=== PATIENT | male | born 1970 | race Caucasian/White ===

== ENCOUNTER 2018-11-28 04:16 | Emergency (ER) | payer OTHER ==
[2018-11-28 04:45] LABS: ADD MAN DIFF? NO
[2018-11-28] MEDS: LORAZEPAM 1 MG TAB PO (04:45)
[2018-11-28 04:47] LABS: BASOPHILS % 0.3 % (0.0-2.0); EOSINOPHILS # 0.1 10^3/ul (0.0-0.5); EOSINOPHILS % 1.1 % (0.0-7.0); HEMATOCRIT 48.6 % (42.0-52.0); HEMOGLOBIN 15.9 g/dl (14.0-18.0); LYMPHOCYTES # 2.9 10^3/ul (0.8-2.9); MEAN CORPUSCULAR HEMOGLOBIN 27.4 pg (29.0-33.0); MEAN CORPUSCULAR HGB CONC 32.7 g/dl (32.0-37.0); MEAN CORPUSCULAR VOLUME 83.6 fl (82.0-101.0); MEAN PLATELET VOLUME 10.3 fl (7.4-10.4); MONOCYTE # 0.5 10^3/ul (0.3-0.9); NEUTROPHIL # 5.4 10^3/ul (1.6-7.5); NEUTROPHILS % 60.2 % (39.0-77.0); PLATELET COUNT 284 10^3/UL (140-415); RED BLOOD COUNT 5.81 10^6/ul (4.70-6.10); RED CELL DISTRIBUTION WIDTH 14.6 % (11.5-14.5)
[2018-11-28 05:11] LABS: ALANINE AMINOTRANSFERASE 15 IU/L (13-69); ALBUMIN 4.3 g/dl (3.3-4.9); ALKALINE PHOSPHATASE 143 IU/L (42-121); ANION GAP 10 (5-13); ASPARTATE AMINO TRANSFERASE 24 IU/L (15-46); BLOOD UREA NITROGEN 13 mg/dl (7-20); CALCIUM 8.7 mg/dl (8.4-10.2); CARBON DIOXIDE 31 mmol/L (21-31); CHLORIDE 109 mmol/L (97-110); CREATININE 0.83 mg/dl (0.61-1.24); Estimated GFR > 60 mL/min (>60); GLUCOSE 111 mg/dl (70-220); POTASSIUM 3.8 mmol/L (3.5-5.1); SODIUM 150 mmol/L (135-144); TOTAL PROTEIN 8.6 g/dl (6.1-8.1)
[2018-11-28] MEDS: SOD CHLORIDE 0.9% 1,000 ML IV (05:39)
== END 2018-11-28 08:03 | disposition home or self-care (01) ==
LOC: E/R 08:03
DX: F10.920 Alcohol use, unspecified with intoxication, uncomplicated (principal); R40.2142 Coma scale, eyes open, spontaneous, at arrival to emergency department; R40.2252 Coma scale, best verbal response, oriented, at arrival to emergency department; R40.2362 Coma scale, best motor response, obeys commands, at arrival to emergency department
CPT/HCPCS: 80053; 80307; 85025; 99284-25

== ENCOUNTER 2018-11-28 09:11 | Inpatient (IN) | payer OTHER ==
[2018-11-28 10:11] LABS: ADD MAN DIFF? NO
[2018-11-28 10:19] LABS: WHITE BLOOD COUNT 7.9 10^3/ul (4.8-10.8)
[2018-11-28 10:19] LABS: BASOPHILS % 0.3 % (0.0-2.0); EOSINOPHILS % 0.5 % (0.0-7.0); HEMATOCRIT 44.6 % (42.0-52.0); HEMOGLOBIN 14.8 g/dl (14.0-18.0); LYMPHOCYTES # 2.3 10^3/ul (0.8-2.9); MEAN CORPUSCULAR HEMOGLOBIN 27.3 pg (29.0-33.0); MEAN CORPUSCULAR HGB CONC 33.2 g/dl (32.0-37.0); MEAN CORPUSCULAR VOLUME 82.1 fl (82.0-101.0); MEAN PLATELET VOLUME 10.3 fl (7.4-10.4); MONOCYTE # 0.6 10^3/ul (0.3-0.9); MONOCYTES % 7.9 % (0.0-11.0); NEUTROPHIL # 4.8 10^3/ul (1.6-7.5); NEUTROPHILS % 61.7 % (39.0-77.0); PLATELET COUNT 260 10^3/UL (140-415); RED BLOOD COUNT 5.43 10^6/ul (4.70-6.10); RED CELL DISTRIBUTION WIDTH 14.8 % (11.5-14.5)
[2018-11-28 10:34] LABS: ALANINE AMINOTRANSFERASE 20 IU/L (13-69); ALBUMIN/GLOBULIN RATIO 1.08; ALKALINE PHOSPHATASE 115 IU/L (42-121); ANION GAP 11 (5-13); ASPARTATE AMINO TRANSFERASE 21 IU/L (15-46); BLOOD UREA NITROGEN 12 mg/dl (7-20); CALCIUM 8.3 mg/dl (8.4-10.2); CARBON DIOXIDE 30 mmol/L (21-31); CHLORIDE 106 mmol/L (97-110); CREATININE 0.73 mg/dl (0.61-1.24); Estimated GFR > 60 mL/min (>60); GLUCOSE 120 mg/dl (70-220); POTASSIUM 3.2 mmol/L (3.5-5.1); SODIUM 147 mmol/L (135-144); TOTAL PROTEIN 7.7 g/dl (6.1-8.1)
[2018-11-28 10:35] LABS: ADD UMIC YES; UR ASCORBIC ACID NEGATIVE (NEGATIVE); UR BILIRUBIN (Dip) NEGATIVE (NEGATIVE); UR BLOOD (Dip) 1+ mg/dL (NEGATIVE); UR CLARITY SLIGHTLY CLOUDY (CLEAR); UR COLOR YELLOW (YELLOW); UR GLUCOSE (Dip) 2+ mg/dL (NEGATIVE); UR KETONES (Dip) NEGATIVE (NEGATIVE); UR LEUKOCYTE ESTERASE (Dip) 2+ Leu/ul (NEGATIVE); UR NITRITE (Dip) NEGATIVE (NEGATIVE); UR NONSQUAMOUS EPITHELIAL CELL 2 /HPF (NONE SEEN); UR RBC 10 /HPF (0-5); UR SPECIFIC GRAVITY (Dip) 1.016 (1.003-1.030); UR TOTAL PROTEIN (Dip) 2+ mg/dl (NEGATIVE); UR UROBILINOGEN (Dip) 1+ mg/dL (NEGATIVE); UR WBC > 182 /HPF (0-5)
[2018-11-28 10:47] LABS: ACETAMINOPHEN < 10.0 ug/ml (10.0-30.0); SALICYLATE < 1.0 mg/dl (5.0-30.0)
[2018-11-28] MEDS: TRIMETHOPRIM/SULFAMETHOX (DS) TAB PO (10:54)
[2018-11-28 11:07] LABS: AMPHETAMINE/METHAMPHETAMINE Negative (NEGATIVE); BARBITURATES Negative (NEGATIVE); BENZODIAZEPINES Negative (NEGATIVE); CANNABINOIDS Negative (NEGATIVE); COCAINE Negative (NEGATIVE); OPIATES Negative (NEGATIVE)
[2018-11-28] MEDS: ONDANSETRON 4 MG INJ IM (12:03)
[2018-11-28] MEDS: OLANZAPINE 10 MG VIAL IM (12:32)
[2018-11-28] MEDS: METOCLOPRAMIDE 10 MG INJ IV (18:32)
[2018-11-28] MEDS: SOD CHLORIDE 0.9% 1,000 ML IV (18:33)
[2018-11-28] MEDS: LORAZEPAM 2 MG INJ IV (18:34)
[2018-11-28] MEDS: PANTOPRAZOLE IV 80 MG in SOD CHLORIDE 0.9% 100 ML IVPB (18:53)
[2018-11-28] MEDS: PANTOPRAZOLE IV 80 MG in SOD CHLORIDE 0.9% 100 ML IV (18:54)
[2018-11-28] MEDS ORDERED: SOD CHLORIDE 0.9% 1,000 ML IV ×2 (19:48→20:09)
[2018-11-28] MEDS ORDERED: ONDANSETRON 4 MG INJ IV ×2 (20:00→20:30)
[2018-11-28] MEDS ORDERED: ACETAMINOPHEN 325 MG TAB PO ×2 (20:00→20:30)
[2018-11-28] MEDS ORDERED: METOCLOPRAMIDE 10 MG INJ IV (20:30)
[2018-11-28] MEDS ORDERED: LORAZEPAM 2 MG INJ IV (20:30)
[2018-11-28] MEDS ORDERED: NACL 0.9% 3 ML SYG IV (20:30)
[2018-11-28] MEDS: POTASSIUM CHLORIDE (SR) 20 MEQ TAB PO (21:44)
[2018-11-28] MEDS: LORAZEPAM 1 MG TAB PO (22:06)
[2018-11-28 22:24] LABS: INR 0.99; PROTIME 13.2 Sec (11.9-14.9)
[2018-11-28 22:25] LABS: PARTIAL THROMBOPLASTIN TIME 28.2 Sec (23.0-35.0)
[2018-11-28] MEDS: CEFTRIAXONE 2 GM/50 ML (PMX) 50 ML IVPB (22:56)
[2018-11-28 23:33] LABS: ADD MAN DIFF? NO
[2018-11-28 23:36] LABS: WHITE BLOOD COUNT 11.2 10^3/ul (4.8-10.8)
[2018-11-28 23:36] LABS: BASOPHILS % 0.3 % (0.0-2.0); EOSINOPHILS % 0.4 % (0.0-7.0); HEMATOCRIT 39.4 % (42.0-52.0); LYMPHOCYTES # 2.6 10^3/ul (0.8-2.9); LYMPHOCYTES % 23.3 % (15.0-51.0); MEAN CORPUSCULAR HEMOGLOBIN 27.1 pg (29.0-33.0); MEAN CORPUSCULAR VOLUME 82.3 fl (82.0-101.0); MEAN PLATELET VOLUME 10.6 fl (7.4-10.4); MONOCYTES % 8.5 % (0.0-11.0); NEUTROPHIL # 7.5 10^3/ul (1.6-7.5); NEUTROPHILS % 67.1 % (39.0-77.0); PLATELET COUNT 232 10^3/UL (140-415); RED BLOOD COUNT 4.79 10^6/ul (4.70-6.10); RED CELL DISTRIBUTION WIDTH 14.9 % (11.5-14.5)
[2018-11-29] MEDS: MULTIVITAMINS 10 ML, THIAMINE 100 MG, FOLIC ACID 1 MG in SOD CHLORIDE 0.9% 1,000 ML IVPB (00:27)
[2018-11-29] MEDS: POTASSIUM CHLORIDE 30 MEQ in SOD CHLORIDE 0.45% 1,000 ML IV ×2 (00:58→13:40)
[2018-11-29 06:13] LABS: ADD MAN DIFF? NO
[2018-11-29 06:17] LABS: WHITE BLOOD COUNT 8.3 10^3/ul (4.8-10.8)
[2018-11-29 06:17] LABS: BASOPHILS % 0.5 % (0.0-2.0); EOSINOPHILS # 0.1 10^3/ul (0.0-0.5); EOSINOPHILS % 1.2 % (0.0-7.0); HEMATOCRIT 35.1 % (42.0-52.0); HEMOGLOBIN 11.5 g/dl (14.0-18.0); LYMPHOCYTES # 2.4 10^3/ul (0.8-2.9); LYMPHOCYTES % 28.7 % (15.0-51.0); MEAN CORPUSCULAR HEMOGLOBIN 27.3 pg (29.0-33.0); MEAN CORPUSCULAR HGB CONC 32.8 g/dl (32.0-37.0); MEAN CORPUSCULAR VOLUME 83.2 fl (82.0-101.0); MEAN PLATELET VOLUME 10.6 fl (7.4-10.4); MONOCYTE # 0.9 10^3/ul (0.3-0.9); MONOCYTES % 10.3 % (0.0-11.0); NEUTROPHIL # 4.9 10^3/ul (1.6-7.5); NEUTROPHILS % 59.1 % (39.0-77.0); PLATELET COUNT 185 10^3/UL (140-415); RED BLOOD COUNT 4.22 10^6/ul (4.70-6.10); RED CELL DISTRIBUTION WIDTH 15.2 % (11.5-14.5)
[2018-11-29] MEDS: PANTOPRAZOLE IV 80 MG in SOD CHLORIDE 0.9% 100 ML IV ×2 (06:46→16:15)
[2018-11-29 07:01] LABS: ALANINE AMINOTRANSFERASE 16 IU/L (13-69); ALBUMIN 2.9 g/dl (3.3-4.9); ALBUMIN/GLOBULIN RATIO 1.07; ALKALINE PHOSPHATASE 89 IU/L (42-121); ANION GAP 6 (5-13); ASPARTATE AMINO TRANSFERASE 16 IU/L (15-46); BILIRUBIN,INDIRECT 0.2 mg/dl (0-1.1); BILIRUBIN,TOTAL 0.2 mg/dl (0.2-1.3); BLOOD UREA NITROGEN 10 mg/dl (7-20); CALCIUM 7.8 mg/dl (8.4-10.2); CARBON DIOXIDE 26 mmol/L (21-31); CHLORIDE 107 mmol/L (97-110); CREATININE 0.75 mg/dl (0.61-1.24); Estimated GFR > 60 mL/min (>60); GLUCOSE 143 mg/dl (70-220); MAGNESIUM 1.7 mg/dl (1.7-2.5); POTASSIUM 3.6 mmol/L (3.5-5.1); SODIUM 139 mmol/L (135-144); TOTAL PROTEIN 5.6 g/dl (6.1-8.1)
[2018-11-29 08:26] LABS: HEMOGLOBIN A1C 5.2 % (0-5.9)
[2018-11-29] MEDS: MULTIVITAMINS THERAPEUTIC TAB PO (09:07)
[2018-11-29] MEDS: THIAMINE 200 MG INJ IM (09:07)
[2018-11-29] MEDS: FOLIC ACID 1 MG TAB PO (09:07)
[2018-11-29] MEDS: ATENOLOL 100 MG TAB PO (09:07)
[2018-11-29] MEDS: LORAZEPAM 1 MG TAB PO ×3 (09:16→17:48)
[2018-11-29 10:30] LABS: ADD MAN DIFF? NO
[2018-11-29 10:41] LABS: BASOPHILS % 0.5 % (0.0-2.0); EOSINOPHILS # 0.1 10^3/ul (0.0-0.5); EOSINOPHILS % 1.5 % (0.0-7.0); HEMATOCRIT 34.5 % (42.0-52.0); HEMOGLOBIN 11.3 g/dl (14.0-18.0); LYMPHOCYTES % 30.1 % (15.0-51.0); MEAN CORPUSCULAR HEMOGLOBIN 27.3 pg (29.0-33.0); MEAN CORPUSCULAR HGB CONC 32.8 g/dl (32.0-37.0); MEAN CORPUSCULAR VOLUME 83.3 fl (82.0-101.0); MEAN PLATELET VOLUME 10.2 fl (7.4-10.4); MONOCYTE # 0.5 10^3/ul (0.3-0.9); MONOCYTES % 8.1 % (0.0-11.0); NEUTROPHIL # 3.9 10^3/ul (1.6-7.5); NEUTROPHILS % 59.3 % (39.0-77.0); PLATELET COUNT 182 10^3/UL (140-415); RED BLOOD COUNT 4.14 10^6/ul (4.70-6.10); RED CELL DISTRIBUTION WIDTH 14.9 % (11.5-14.5)
[2018-11-29 10:41] LABS: WHITE BLOOD COUNT 6.6 10^3/ul (4.8-10.8)
[2018-11-29] MEDS: LEVOFLOXACIN 750MG/D5W (PMX) 150 ML IVPB (12:54)
[2018-11-29 17:11] LABS: ADD MAN DIFF? NO
[2018-11-29 17:13] LABS: WHITE BLOOD COUNT 9.7 10^3/ul (4.8-10.8)
[2018-11-29 17:13] LABS: BASOPHILS % 0.3 % (0.0-2.0); EOSINOPHILS # 0.1 10^3/ul (0.0-0.5); EOSINOPHILS % 1.2 % (0.0-7.0); HEMATOCRIT 35.4 % (42.0-52.0); HEMOGLOBIN 11.5 g/dl (14.0-18.0); LYMPHOCYTES # 2.5 10^3/ul (0.8-2.9); LYMPHOCYTES % 25.6 % (15.0-51.0); MEAN CORPUSCULAR HEMOGLOBIN 27.1 pg (29.0-33.0); MEAN CORPUSCULAR HGB CONC 32.5 g/dl (32.0-37.0); MEAN CORPUSCULAR VOLUME 83.3 fl (82.0-101.0); MEAN PLATELET VOLUME 10.2 fl (7.4-10.4); MONOCYTE # 0.7 10^3/ul (0.3-0.9); MONOCYTES % 6.9 % (0.0-11.0); NEUTROPHIL # 6.4 10^3/ul (1.6-7.5); NEUTROPHILS % 65.7 % (39.0-77.0); PLATELET COUNT 176 10^3/UL (140-415); RED BLOOD COUNT 4.25 10^6/ul (4.70-6.10); RED CELL DISTRIBUTION WIDTH 14.5 % (11.5-14.5)
[2018-11-29] MEDS: LORAZEPAM 4 MG/ML VIAL IV (21:39)
[2018-11-30] MEDS: SOD CHLORIDE 0.9% 1,000 ML IV ×2 (01:04→17:42)
[2018-11-30] MEDS: ZOLPIDEM 5 MG TAB PO ×2 (01:12→21:58)
[2018-11-30] MEDS: PANTOPRAZOLE IV 80 MG in SOD CHLORIDE 0.9% 100 ML IV ×3 (01:13→20:55)
[2018-11-30] MEDS: LEVOFLOXACIN 500 MG TAB PO (05:29)
[2018-11-30] MEDS: LORAZEPAM 1 MG TAB PO (06:52)
[2018-11-30] MEDS: MULTIVITAMINS THERAPEUTIC TAB PO (11:09)
[2018-11-30] MEDS: ATENOLOL 100 MG TAB PO (11:10)
[2018-11-30] MEDS: ALPRAZOLAM 0.5 MG TAB PO (11:10)
[2018-11-30] MEDS: FOLIC ACID 1 MG TAB PO (11:10)
[2018-11-30] MEDS: THIAMINE 200 MG INJ IM (11:11)
[2018-11-30] MEDS ORDERED: CHLORPROMAZINE 25 MG INJ IM (11:30)
[2018-11-30] MEDS ORDERED: OLANZAPINE 5 MG TAB PO (11:30)
[2018-11-30] MEDS: CHLORDIAZEPOXIDE 25 MG CAP PO ×2 (12:09→20:54)
[2018-11-30] MEDS: SUCRALFATE (100 MG/ML) 10ML CUP GTB ×3 (12:09→20:54)
[2018-11-30 13:01] LABS: ADD UMIC NO; UR ASCORBIC ACID NEGATIVE (NEGATIVE); UR BILIRUBIN (Dip) NEGATIVE (NEGATIVE); UR BLOOD (Dip) NEGATIVE (NEGATIVE); UR CLARITY CLEAR (CLEAR); UR COLOR STRAW (YELLOW); UR GLUCOSE (Dip) NEGATIVE (NEGATIVE); UR KETONES (Dip) NEGATIVE (NEGATIVE); UR LEUKOCYTE ESTERASE (Dip) NEGATIVE Leu/ul (NEGATIVE); UR NITRITE (Dip) NEGATIVE (NEGATIVE); UR SPECIFIC GRAVITY (Dip) 1.008 (1.003-1.030); UR TOTAL PROTEIN (Dip) NEGATIVE (NEGATIVE); UR UROBILINOGEN (Dip) NEGATIVE (NEGATIVE)
[2018-11-30 16:28] LABS: ETHANOL < 10.0 mg/dl (0-0)
[2018-11-30] MEDS: BISACODYL (EC) 5 MG TAB PO (21:59)
[2018-12-01] MEDS: LEVOFLOXACIN 500 MG TAB PO (05:29)
[2018-12-01] MEDS: PANTOPRAZOLE IV 80 MG in SOD CHLORIDE 0.9% 100 ML IV (05:32)
[2018-12-01] MEDS: CHLORDIAZEPOXIDE 25 MG CAP PO ×3 (09:00→20:04)
[2018-12-01] MEDS: FOLIC ACID 1 MG TAB PO (09:00)
[2018-12-01] MEDS: MULTIVITAMINS THERAPEUTIC TAB PO (09:00)
[2018-12-01] MEDS: ALPRAZOLAM 0.5 MG TAB PO (09:00)
[2018-12-01] MEDS: ATENOLOL 100 MG TAB PO (09:01)
[2018-12-01] MEDS: SUCRALFATE (100 MG/ML) 10ML CUP GTB ×4 (09:01→20:04)
[2018-12-01] MEDS: THIAMINE 200 MG INJ IM (12:37)
[2018-12-01] MEDS: PANTOPRAZOLE 40 MG INJ IV (17:25)
[2018-12-01] MEDS: QUETIAPINE 25 MG TAB PO (20:04)
[2018-12-02] MEDS: LEVOFLOXACIN 500 MG TAB PO (06:14)
[2018-12-02] MEDS: PANTOPRAZOLE 40 MG INJ IV ×2 (06:14→17:20)
[2018-12-02 06:25] LABS: ADD MAN DIFF? NO
[2018-12-02 06:33] LABS: BASOPHILS % 0.3 % (0.0-2.0); EOSINOPHILS # 0.2 10^3/ul (0.0-0.5); EOSINOPHILS % 2.6 % (0.0-7.0); HEMATOCRIT 35.2 % (42.0-52.0); HEMOGLOBIN 11.8 g/dl (14.0-18.0); LYMPHOCYTES # 1.9 10^3/ul (0.8-2.9); LYMPHOCYTES % 29.9 % (15.0-51.0); MEAN CORPUSCULAR HEMOGLOBIN 27.6 pg (29.0-33.0); MEAN CORPUSCULAR HGB CONC 33.5 g/dl (32.0-37.0); MEAN CORPUSCULAR VOLUME 82.2 fl (82.0-101.0); MEAN PLATELET VOLUME 10.7 fl (7.4-10.4); MONOCYTE # 0.5 10^3/ul (0.3-0.9); MONOCYTES % 7.8 % (0.0-11.0); NEUTROPHIL # 3.8 10^3/ul (1.6-7.5); NEUTROPHILS % 59.2 % (39.0-77.0); PLATELET COUNT 217 10^3/UL (140-415); RED BLOOD COUNT 4.28 10^6/ul (4.70-6.10); RED CELL DISTRIBUTION WIDTH 14.5 % (11.5-14.5)
[2018-12-02 06:33] LABS: WHITE BLOOD COUNT 6.5 10^3/ul (4.8-10.8)
[2018-12-02 06:55] LABS: ANION GAP 4 (5-13); BLOOD UREA NITROGEN 12 mg/dl (7-20); CALCIUM 8.8 mg/dl (8.4-10.2); CARBON DIOXIDE 28 mmol/L (21-31); CHLORIDE 108 mmol/L (97-110); CREATININE 0.77 mg/dl (0.61-1.24); Estimated GFR > 60 mL/min (>60); GLUCOSE 107 mg/dl (70-220); POTASSIUM 3.7 mmol/L (3.5-5.1); SODIUM 140 mmol/L (135-144)
[2018-12-02] MEDS: FOLIC ACID 1 MG TAB PO (08:51)
[2018-12-02] MEDS: CHLORDIAZEPOXIDE 25 MG CAP PO ×3 (08:51→20:17)
[2018-12-02] MEDS: MULTIVITAMINS THERAPEUTIC TAB PO (08:51)
[2018-12-02] MEDS: ATENOLOL 100 MG TAB PO (08:52)
[2018-12-02] MEDS: SUCRALFATE (100 MG/ML) 10ML CUP GTB ×4 (08:52→20:18)
[2018-12-02] MEDS: ALPRAZOLAM 1 MG TAB PO (09:31)
[2018-12-02] MEDS: QUETIAPINE 100 MG TAB PO (20:18)
[2018-12-03] MEDS: LEVOFLOXACIN 500 MG TAB PO (05:53)
[2018-12-03] MEDS: PANTOPRAZOLE 40 MG INJ IV (05:53)
[2018-12-03] MEDS: CHLORDIAZEPOXIDE 25 MG CAP PO (09:23)
[2018-12-03] MEDS: FOLIC ACID 1 MG TAB PO (09:23)
[2018-12-03] MEDS: SUCRALFATE (100 MG/ML) 10ML CUP GTB (09:23)
[2018-12-03] MEDS: ATENOLOL 100 MG TAB PO (09:24)
[2018-12-03] MEDS: MULTIVITAMINS THERAPEUTIC TAB PO (09:24)
[2018-12-03] MEDS: ALPRAZOLAM 1 MG TAB PO (09:25)
== END 2018-12-03 12:20 | DRG 378 ==
LOC: 5EC 12-01 14:27 → E/R 09:11 → TEL 20:21
DX: K92.0 Hematemesis (principal); R45.851 Suicidal ideations; N30.00 Acute cystitis without hematuria; E87.0 Hyperosmolality and hypernatremia; Z59.0 Homelessness; Z72.0 Tobacco use; F15.90 Other stimulant use, unspecified, uncomplicated; E87.6 Hypokalemia; R45.1 Restlessness and agitation; F10.129 Alcohol abuse with intoxication, unspecified; Y90.8 Blood alcohol level of 240 mg/100 ml or more; E86.0 Dehydration; F20.9 Schizophrenia, unspecified; K29.70 Gastritis, unspecified, without bleeding
CPT/HCPCS: 36415; 71045; 80048; 80053; 80307; 81001; 81003; 83036; 83735; 84443; 85025; 85610; 85730; 86850; 86900; 86901; 87086; 90686; 96372; 96374; 96375; 96376; 99285-25; G0378